=== PATIENT | female | born 1970 | race Hispanic/Latino ===

== ENCOUNTER 2020-03-23 16:08 | Inpatient (IN) | payer SELFPAY ==
[~2020-03-23 16:08] MED LIST: Iopamidol-370 76% 500 ML 1 ML ONE
[2020-03-23 17:23] LABS: Hemoglobin 12.7 g/dL (12.0-16.0); Mean Corpuscular HGB CONC 34.3 g/dL (32.0-36.0); Mean Corpuscular Hemoglobin 30.5 pg (27.0-31.0); Mean Corpuscular Volume 88.9 fL (78.0-98.0); Mean Platelet Volume 6.6 fL (7.4-10.4); Platelet Count 403 thou/uL (130-400); RBC Distribution Width 12.7 % (11.5-14.5); Red Blood Cell (RBC) Count 4.16 mill/uL (4.20-5.40); White Blood Cell (WBC) Count 8.3 thou/uL (4.8-10.8)
[2020-03-23] MEDS ORDERED: Morphine 4 MG/ML VIAL ONE (17:44)
[2020-03-23] MEDS ORDERED: Ondansetron PF 4 MG/2 ML Vial ONE (17:44)
[2020-03-23 17:45] LABS: ALT (SGPT) 13 U/L (8-55); AST (SGOT) 14 U/L (5-34); Albumin 3.5 g/dL (3.5-5.0); Alkaline Phosphatase 139 U/L (40-110); Anion Gap 13 mmol/L (10-20); BUN (Urea Nitrogen) 8 mg/dL (7.0-18.7); Band 4 % (5-11); Bilirubin, Total 0.4 mg/dL (0.2-1.2); Calc. Creatinine Clearance 0 mL/min (70-130); Calcium 8.8 mg/dL (7.8-10.44); Carbon Dioxide 24 mmol/L (22-29); Chloride 101 mmol/L (98-107); Estimated GFR-MDRD Greater than 90; Glucose 110 mg/dL (70-105); Lipase 14 U/L (8-78); Lymphocytes 30 % (21-51); MDiff Complete? YES; Monocytes 6 % (0-10); Neutrophil 60 % (42-75); Platelet Morphology Comment Appears Increased; Potassium 3.5 mmol/L (3.5-5.1); Protein, Total 7.5 g/dL (6.0-8.3); RBC Morphology Normal; Sodium 134 mmol/L (136-145)
--- NOTE | 2020-03-23 18:53 | CT ---
CT Abdomen Pelvis W Con History: Diffuse abdominal pain Comparison: None. Findings: Large left and moderate right layering pleural effusion incompletely evaluated. Consolidati ve appearance left lung base. No significant pericardial fluid. Abnormal peritoneal nodules in the right subhepatic space as well as right paracolic gutter. Abnormal nodularity left paracolic gutter as well as nodules along the sigmoid colon and descending colon. There are dilated loops of jejunum measuring up to 5 cm in size with partial obstruction likely seque lae of adhesions. Given lack of comparison exams, a contained perforation cannot be totally excluded although there is no gas within any of these collections. Loculated intraperitoneal fluid with thick wall loops of small bowel. Abnormal thickening of the omen simin. Liver and spleen are unremarkable. No hydronephrosis. Adrenal glands are grossly unremarkable. Celiac trunk and superior mesenteric arteries are patent. Metastatic proximal small bowel lymph nodes as well as retroperitoneal periaortic adenopathy. There is mass effect upon the loop of small bowel ante rior to a loculated anterior peritoneal space fluid collection with irregular to the serosa likely metastatic implants. No acute osseous abnormality. Impression: 1. Loculated collections of the peritoneal space with tethering of large and small bowel as well as p eritoneal carcinomatosis. There are dilated loops of jejunum in the mid abdomen measuring up to 5 cm in size which appear to be obstructed from loculated collections as well as scarring and adhesions with transition point in the lower mid abdomen. Surgical consultation is advised. Patient may also benefit from a right lower quadrant directed paracentesis to alleviate some of the mass effect upon t he large and small bowel. 2. Retroperitoneal periaortic, common iliac, and proximal small bowel mesenteric adenopathy. 3. Cholelithiasis. 4. Abnormal soft tissue nodule along the gallbladder fundus towards nonemergent follow-up ultrasound recommended. 5. Large left and moderate right pleural effusion as well as consolidative changes in the lung bases may reflect round atelectasis versus less likely pneumonia or metastatic disease.
[2020-03-23] MEDS ORDERED: Midazolam HCl 2 mg/2 ml Vial ONE (20:06)
--- NOTE | 2020-03-23 21:03 | RAD ---
XR Abdomen 1 View/KUB History: NG tube placement Comparison: None. Findings: Enteric tube is in place with tip in gastric antrum. There is contrast within the renal col lecting systems in the urinary bladder. Impression: Satisfactory location of the enteric tube.
[2020-03-23] MEDS ORDERED: Ondansetron ODT 4 MG TAB PO PRN (21:19)
[2020-03-23] MEDS ORDERED: Ondansetron PF 4 MG/2 ML Vial IVP PRN (21:19)
[2020-03-23] MEDS ORDERED: Morphine 2 MG/ML SYRINGE SLOW IVP PRN (21:21)
--- NOTE | 2020-03-23 21:29 | PDOC.HHP ---
Hospitalist HPI - History of Present Illness abdominal pain History of Present Illness: history is limited, patient is a poor historian and has a NGT and refers pain when talking. Case of an 49y/o female with pmhx of ovarion cancer s/p ovariectomy who comes to hospital due to abdominal pain. patient refers that after her procedure in due to covid she has had poor f/u with her oncologist, states that about a month ago her belly started swelling, they did a paracenthesis and she had cancer cells in the parecenthesis fluid. she states that she is not currently in any treatment and came to hospital in recommendation from her doctor and increased swelling and pain on her abdomen. At the ED patient was dx with SOB and hospitalist was consulted for further evaluation and management. patient states he last bowel movement was 1 day ago. Hospitalist ROS - Review of Systems All other systems reviewed; all pertinent +/- noted in HPI/Subj Hospitalist History - Past Medical History Source: patient Heme/Onc: reports: Cancer - Past Surgical History Past Surgical History: reports: Other Surgical History: ovarectomy - Family History Family History: reports: no pertinent history - Social History Smoking Status: Never smoker Alcohol: reports: None Drugs: reports: none Activity level: independent ambulation - Exam Eye: PERRL, anicteric sclera ENT: normocephalic atraumatic, no oropharyngeal lesions Neck: supple, symmetric, no JVD Heart: RRR, no murmur, no gallops Respiratory: CTAB, no wheezes, no rales Gastrointestinal: tender to palpation, distended, diminished bowl sounds Extremities: no cyanosis, no clubbing, no edema Skin: normal turgor, no lesions Neurological: cranial nerve grossly intact, normal sensation to touch Musculoskeletal: normal tone, normal strength Psychiatric: normal affect, normal behavior, A&O x 3 Hospitalist Results - Labs Result Diagrams: 03/23/20 17:11 03/23/20 17:11 Lab results: WBC 8.3 thou/uL (4.8-10.8) 03/23/20 17:11 Hgb 12.7 g/dL (12.0-16.0) 03/23/20 17:11 Hct 37.0 % (36.0-47.0) 03/23/20 17:11 MCV 88.9 fL (78.0-98.0) 03/23/20 17:11 Plt Count 403 thou/uL (130-400) H 03/23/20 17:11 Band Neuts % (Manual) 4 % (5-11) L 03/23/20 17:11 Sodium 134 mmol/L (136-145) L 03/23/20 17:11 Potassium 3.5 mmol/L (3.5-5.1) 03/23/20 17:11 Chloride 101 mmol/L (98-107) 03/23/20 17:11 Carbon Dioxide 24 mmol/L (22-29) 03/23/20 17:11 BUN 8 mg/dL (7.0-18.7) 03/23/20 17:11 Creatinine 0.69 mg/dL (0.6-1.1) 03/23/20 17:11 Glucose 110 mg/dL (70-105) H 03/23/20 17:11 Calcium 8.8 mg/dL (7.8-10.44) 03/23/20 17:11 Total Bilirubin 0.4 mg/dL (0.2-1.2) 03/23/20 17:11 AST 14 U/L (5-34) 03/23/20 17:11 ALT 13 U/L (8-55) 03/23/20 17:11 Alkaline Phosphatase 139 U/L (40-110) H 03/23/20 17:11 Serum Total Protein 7.5 g/dL (6.0-8.3) 03/23/20 17:11 Albumin 3.5 g/dL (3.5-5.0) 03/23/20 17:11 Lipase 14 U/L (8-78) 03/23/20 17:11 - Radiology Interpretation CT scan - abdomen Additional Comment: ascites, SBO Hospitalist H&P A/P - Problem (1) Small bowel obstruction Code(s): K56.609 - UNSP INTESTNL OBST, UNSP TO PARTIAL VERSUS COMPLETE OBST Status: Acute (2) Ovarian cancer Status: Acute (3) Metastasis Code(s): C79.9 - SECONDARY MALIGNANT NEOPLASM OF UNSPECIFIED SITE Status: Acute (4) Ascites, malignant Code(s): R18.0 - MALIGNANT ASCITES Status: Acute - Plan Plan: 49 y/o fem with metastatic ovarian cancer presenet with bowel obstruction and ascites - npo - iv hydration - symptomatic tx for nause - ngt on intermittent suction - pain management - dvt prophylaxis - gen surgeon consulted - oncologist consulted - depeding on surgeon evaluation consider paracenthesis by IR
[2020-03-23] MEDS: Sodium Chloride 0.9% 1,000 ML IV SCH (23:24)
[2020-03-24 00:29] VITALS: BMI 25.4
[2020-03-24] MEDS: Morphine 4 MG/ML VIAL SLOW IVP PRN (03:55)
--- NOTE | 2020-03-24 09:11 | PDOC.GSPN ---
Surgery Progress Note: Subj - Subjective Patient reports: still having pain (49 yo female with a PMHx of ovarian cancer and secondary ascites. She speaks kuwaiti so very little history was able to be obtained.) Surgery Progress Note: Obj - Vital signs Vital signs: Vital Signs - Most Recent Temp Pulse Resp BP Pulse Ox 98.7 F 95 16 125/74 97 03/24/20 07:10 03/24/20 07:10 03/24/20 07:10 03/24/20 07:10 03/24/20 07:10 - Physical Exam General: moderate distress, moderate pain Abdomen: decreased bowel sounds, distended, other (Patients abdomen is dull to persussion. NG tube has produced 125 mL of bilious fluid.) Surgery Progress Note: Results - Labs Result Diagrams: 03/23/20 17:11 03/23/20 17:11 - Radiology Interpretation CT scan - abdomen Status: report reviewed by me (Report shows abnormal nodularity in the subhepatic space, left and right paracolic gutters, and along the sigmoid colon. Omentum appears thickened. Dilated loops of jejunum likely secondary to adhesions.) Surgery Progress Note: A/P - Problem (1) Ascites, malignant Current Visit: Yes Code(s): R18.0 - MALIGNANT ASCITES Status: Acute (2) Metastasis Current Visit: Yes Code(s): C79.9 - SECONDARY MALIGNANT NEOPLASM OF UNSPECIFIED SITE Status: Acute (3) Ovarian cancer Current Visit: Yes Status: Acute - Plan Plan: Continue to monitor patient for small bowel obstruction. Addendum - Physician - Physician Attestation Date/Time: 03/24/20 8650 I personally performed or re-performed the physical examination and medical decision making. I have verified all student documentation or findings, including history, physical exam and/or medical decision making. Ovarian malignancy with carcinomatosis and malignant ascites. 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 She does not have an acute abdomen. I suspect this is a chronic obstruction secondary to the cancer.
[2020-03-24] MEDS: Enoxaparin Sodium 40 MG/0.4 ML SYRINGE SC SCH (09:18)
[2020-03-24] MEDS: Sodium Chloride 0.9% 1,000 ML IV SCH (14:07)
[2020-03-24] MEDS: Morphine ER 15 MG TAB PO SCH (20:09)
--- NOTE | 2020-03-24 21:38 | CON ---
DATE OF CONSULTATION: REASON FOR CONSULTATION: Serous carcinoma of the ovary. HISTORY OF PRESENT ILLNESS: Ms. Thakur is a pleasant 49-year-old, Northern Irish-speaking only female, who presented in June 2019 with distended abdomen, weight loss, and ascites. 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 She underwent chemotherapy with carboplatin and Taxol. She underwent exploratory lap and a MARÍA-BSO with tumor debulking by Dr. Duran in October. In January, she was seen in our office and denied any fever, nausea, vomiting, diarrhea, abdominal pain, or blood in stool. She was having some gas pains and occasional bloating. Her CA-125 was elevated at 566. She underwent a routine scanning and unfortunately was noted to have peritoneal carcinomatosis, massive ascites. Her CA-125 increased to 3900 in one month. She underwent a paracentesis on March 16, which was positive for malignant cells. Plan was to start IV chemotherapy with Doxil. Unfortunately, she is uninsured and financial approval process is currently pending. Over the last several days, she has had worsening abdominal discomfort. She presented to the ER and was admitted for possible small bowel obstruction. She underwent a CT of the abdomen and pelvis. There was large left and moderate right pleural effusion. Once again, the peritoneal carcinomatosis was seen. There were dilated loops of jejunum measuring up to 5 cm with partial obstruction, likely due to cancer. She had loculated intraperitoneal fluid with thick walled loops of small bowel. She had thickening of the omentum. She had an NG tube placed, which has putout 125 mL of bilious fluid. History was obtained from the patient using the [employer] field contractor. The patient states that she has been able to eat a little bit over the last week or so. She says she had a small bowel movement yesterday. She has been taking no narcotic pain medication at home. 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 PAST SURGICAL HISTORY: Exploratory lap with MARÍA-BSO and tumor debulking in October 2019. ALLERGIES: NO KNOWN DRUG ALLERGIES. HOME MEDICATIONS: 1. Gabapentin. 2. Hydroxyzine. 3. Zofran. FAMILY HISTORY: She has a BRCA1 mutation. SOCIAL HISTORY: No alcohol, tobacco, or illicit drug use. REVIEW OF SYSTEMS: A 12-point review of systems is negative except for noted in HPI. PHYSICAL EXAMINATION: VITAL SIGNS: Temperature 98.7, pulse is 102, respiratory rate 18, BP is 129/70. She is 95% on room air. GENERAL: This is a well-developed, well-nourished female, in mild abdominal distress. HEENT: Normocephalic and atraumatic. Pupils are equal and reactive to light. NECK: Supple. CV: Regular rate and rhythm. LUNGS: Clear. ABDOMEN: Distended and tender with hypoactive bowel sounds. She has an NG tube in place. EXTREMITIES: No clubbing or cyanosis. SKIN: No rash. HEMATOLOGIC: No petechiae or purpura. NEUROLOGIC: Nonfocal. PERTINENT LABORATORY DATA AND X-RAYS: Current WBCs are 8.3, hemoglobin 12.7, hematocrit 37.0, platelet count is 403,000. She has 60% neutrophils, 4% bands, and 30% lymphocytes. Sodium 134, potassium 3.5, chloride 101, CO2 is 24, BUN is 8, creatinine 0.69, calcium 8.8, bilirubin is 0.4, AST is 14, ALT 13, alkaline phosphatase is 139. Serum total protein 7.5, albumin 3.5, globulin 4, lipase 14. Radiology, per HPI. ASSESSMENT: 1. Recurrent ovarian cancer with malignant ascites. 2. Partial bowel obstruction secondary to #1. DISCUSSION: The patient's NG tube is in place with minimal output. She states she is passing gas. Discussed with general surgeon. There is no surgical intervention planned at this time. The patient was to receive chemotherapy over the next week. We will check with the hospital to see if that is available now and can treat her first cycle as an inpatient. I would recommend long-acting morphine once she is able to take p.o. She understands that if she continues to struggle with bowel movements and eating, that we would recommend comfort care, spending time with family. If she is able to go home and her pain is managed, she can get chemotherapy. Hopefully, this will improve and we can continue forward with treatment. Thank you for the consult. Job ID: [id number]
--- NOTE | 2020-03-24 23:01 | PDOC.HOSPP ---
- Subjective Encounter Date: 03/24/20 Subjective: Feeling ok. No pain. - Objective Vital Signs & Weight: Vital Signs (12 hours) Temp Pulse Resp BP BP Pulse Ox 03/24/20 20:00 99.4 F 100 18 122/72 95 03/24/20 16:00 99.1 F 110 H 16 121/70 97 03/24/20 11:00 98.7 F 102 H 18 129/70 95 Weight Admit Weight 144 lb Weight 144 lb I&O: 03/23/20 03/24/20 03/25/20 06:59 06:59 06:59 Intake Total 971 Output Total 350 Balance 621 Result Diagrams: 03/23/20 17:11 03/23/20 17:11 Hospitalist ROS - Medication Medications: Active Medications Generic Name Dose Route Start Last Admin Trade Name Freq PRN Reason Stop Dose Admin Enoxaparin Sodium 40 mg 03/24/20 09:00 03/24/20 09:18 Lovenox SC 40 mg 0900 UBALDO Administration Sodium Chloride 1,000 mls @ 75 mls/hr 03/23/20 21:30 03/24/20 14:07 Normal Saline 0.9% IV 1,000 mls .[id number] UBALDO Administration Morphine Sulfate 2 mg 03/24/20 03:51 03/24/20 03:55 Morphine SLOW IVP 2 mg Q4H PRN Administration Pain Morphine Sulfate 15 mg 03/24/20 21:00 03/24/20 20:09 Ms Contin PO Not Given Q12HR UBALDO - Exam General Appearance: NAD, awake alert Heart: RRR, no murmur, no gallops, no rubs, normal peripheral pulses Respiratory: CTAB, no wheezes, no rales, no ronchi, normal chest expansion, no tachypnea, normal percussion Gastrointestinal: soft, distended Extremities: no cyanosis, no clubbing, no edema Skin: normal turgor Neurological: no focal deficits Musculoskeletal: normal tone Psychiatric: normal affect, normal behavior, A&O x 3 Hosp A/P (1) Ascites, malignant Code(s): R18.0 - MALIGNANT ASCITES Status: Acute (2) Ovarian cancer Status: Acute (3) Small bowel obstruction Code(s): K56.609 - UNSP INTESTNL OBST, UNSP TO PARTIAL VERSUS COMPLETE OBST Status: Acute (4) Peritoneal carcinomatosis Code(s): C78.6 - SECONDARY MALIGNANT NEOPLASM OF RETROPERITON AND PERITONEUM; C80.1 - MALIGNANT (PRIMARY) NEOPLASM, UNSPECIFIED Status: Suspected - Plan Discussed with Surg and Onc. Bhumi chronic issues. Will attempt to remove the NGT and try po's. If she can tolerate po's, then give long-acting pain meds. If chemo can be obtained immediately, try to initiate here. If not, DC for OP treatment next week. If she cannot tolerate po's or if she fully obstructs, consider hospice.
[2020-03-25] MEDS: Morphine 4 MG/ML VIAL SLOW IVP PRN (02:23)
[2020-03-25] MEDS: Sodium Chloride 0.9% 1,000 ML IV SCH ×2 (02:25→15:12)
[2020-03-25] MEDS: Morphine ER 15 MG TAB PO SCH ×2 (09:20→21:07)
[2020-03-25] MEDS: Enoxaparin Sodium 40 MG/0.4 ML SYRINGE SC SCH (09:20)
--- NOTE | 2020-03-25 10:13 | PDOC.MOPN ---
Interval History: sitting on side of bed, denies pain. NGT clamped at this time. No nausea. - Vital Signs Vital Signs: Vital Signs (12 hours) Temp Pulse Resp BP Pulse Ox 03/25/20 08:30 98.3 F 95 18 128/74 95 03/25/20 04:00 98.5 F 97 16 133/76 97 03/24/20 23:56 98.9 F 97 18 118/70 95 Weight Admit Weight 144 lb Weight 144 lb - Physical Exam General: Alert, Oriented x3, No acute distress HEENT: Atraumatic, PERRLA, EOMI, Mucous membr. moist/pink Lungs: Clear to auscultation, Normal air movement Cardiovascular: Regular rate, Normal S1, Normal S2, No murmurs, Gallops, Rubs Abdomen: Other (distended) Neurological: Normal speech - Labs Result Diagrams: 03/23/20 17:11 03/23/20 17:11 Status: lab reviewed by me A/P - Problem (1) Ascites, malignant Current Visit: Yes Code(s): R18.0 - MALIGNANT ASCITES Status: Acute (2) Metastasis Current Visit: Yes Code(s): C79.9 - SECONDARY MALIGNANT NEOPLASM OF UNSPECIFIED SITE Status: Acute (3) Ovarian cancer Current Visit: Yes Status: Acute (4) Peritoneal carcinomatosis Current Visit: No Code(s): C78.6 - SECONDARY MALIGNANT NEOPLASM OF RETROPERITON AND PERITONEUM; C80.1 - MALIGNANT (PRIMARY) NEOPLASM, UNSPECIFIED Status: Suspected - Plan Plan: 1. labs today 2. NGT out per [facility] TO 3. chemo today 4. discussed with Dr. Benítez who agrees with plan. 5. Continue MS Contin
[2020-03-25] MEDS ORDERED: Palonosetron HCl 0.25 MG in Sodium Chloride 0.9% 50 ML IVPB SCH (10:30)
[2020-03-25] MEDS ORDERED: DEXTROSE 5% IVPB SCH ×2 (10:30→11:30)
[2020-03-25] MEDS ORDERED: DOXORUBICIN IVPB SCH (10:30)
[2020-03-25] MEDS ORDERED: WATER IVPB SCH ×2 (10:30→11:30)
[2020-03-25] MEDS ORDERED: Dexamethasone 10 MG in Sodium Chloride 0.9% 50 ML IVPB SCH (10:30)
[2020-03-25] MEDS ORDERED: DOXORUBICIN PEG LIPOSOMAL IVPB SCH (11:30)
[2020-03-25 12:08] LABS: ALT (SGPT) 10 U/L (8-55); AST (SGOT) 12 U/L (5-34); Albumin 3.2 g/dL (3.5-5.0); Alkaline Phosphatase 112 U/L (40-110); Anion Gap 15 mmol/L (10-20); BUN (Urea Nitrogen) 11 mg/dL (7.0-18.7); Bilirubin, Total 0.5 mg/dL (0.2-1.2); Calc. Creatinine Clearance 126 mL/min (70-130); Calcium 8.6 mg/dL (7.8-10.44); Carbon Dioxide 21 mmol/L (22-29); Chloride 106 mmol/L (98-107); Estimated GFR-MDRD Greater than 90; Globulin 3.8 g/dL (2.4-3.5); Glucose 72 mg/dL (70-105); Potassium 4.1 mmol/L (3.5-5.1); Sodium 138 mmol/L (136-145)
[2020-03-25 12:18] LABS: Band 10 % (5-11); Eosinophils 1 % (0-10); Hemoglobin 11.8 g/dL (12.0-16.0); Lymphocytes 12 % (21-51); MDiff Complete? YES; Mean Corpuscular HGB CONC 32.8 g/dL (32.0-36.0); Mean Corpuscular Hemoglobin 29.7 pg (27.0-31.0); Mean Corpuscular Volume 90.7 fL (78.0-98.0); Mean Platelet Volume 6.8 fL (7.4-10.4); Monocytes 8 % (0-10); Neutrophil 68 % (42-75); Platelet Count 401 thou/uL (130-400); Polychromasia SLIGHT = 2-3 cells (100X) (0-2/hpf); RBC Distribution Width 12.8 % (11.5-14.5); Red Blood Cell (RBC) Count 3.98 mill/uL (4.20-5.40); White Blood Cell (WBC) Count 8.1 thou/uL (4.8-10.8)
--- NOTE | 2020-03-25 18:35 | PDOC.HOSPP ---
- Subjective Encounter Date: 03/25/20 Subjective: Feels well. Doing well without the NG tube so far. Eager to be able to advance her diet as soon as she can. - Objective Vital Signs & Weight: Vital Signs (12 hours) Temp Pulse Resp BP Pulse Ox 03/25/20 08:30 98.3 F 95 18 128/74 95 Weight Admit Weight 144 lb Weight 138 lb I&O: 03/24/20 03/25/20 03/26/20 06:59 06:59 06:59 Intake Total 971 Output Total 150 500 Balance -150 471 Result Diagrams: 03/25/20 11:25 03/25/20 11:25 Hospitalist ROS - Medication Medications: Active Medications Generic Name Dose Route Start Last Admin Trade Name Deanna PRN Reason Stop Dose Admin Enoxaparin Sodium 40 mg 03/24/20 09:00 03/25/20 09:20 Lovenox SC 40 mg 0900 UBALDO Administration Sodium Chloride 1,000 mls @ 75 mls/hr 03/23/20 21:30 03/25/20 15:12 Normal Saline 0.9% IV 1,000 mls .[id number] UBALDO Administration Palonosetron 0.25 mg/ Sodium 55 mls @ 165 mls/hr 03/25/20 10:30 03/25/20 16: 01 Chloride IVPB 03/25/20 23:00 55 mls WILLCALL UBALDO Administration Dexamethasone Sodium Phosphate 51 mls @ 153 mls/hr 03/25/20 11:15 03/25/20 15 :11 10 mg/ Sodium Chloride IVPB 51 mls WILLCALL UBALDO Administration Doxorubicin HCl Liposome 75 mg 287.5 mls @ 191.667 mls/hr 03/25/20 11:30 10/14 16:38 / Dextrose/Water IVPB 287.5 mls WILLCALL UBALDO Administration Morphine Sulfate 15 mg 03/24/20 21:00 03/25/20 09:20 Ms Contin PO Not Given Q12HR UBALDO - Exam General Appearance: NAD, awake alert Heart: RRR, no murmur, no gallops, no rubs, normal peripheral pulses Respiratory: CTAB, no wheezes, no rales, no ronchi, normal chest expansion, no tachypnea, normal percussion Gastrointestinal: soft, non-tender, normal bowel sounds, no palpable masses, no hepatomegaly, no splenomegaly, no bruit, distended Extremities: no cyanosis, no clubbing, no edema Skin: normal turgor Musculoskeletal: normal tone Psychiatric: normal affect, normal behavior, A&O x 3 Hosp A/P (1) Ascites, malignant Code(s): R18.0 - MALIGNANT ASCITES Status: Acute (2) Ovarian cancer Status: Acute (3) Small bowel obstruction Code(s): K56.609 - UNSP INTESTNL OBST, UNSP TO PARTIAL VERSUS COMPLETE OBST Status: Acute (4) Peritoneal carcinomatosis Code(s): C78.6 - SECONDARY MALIGNANT NEOPLASM OF RETROPERITON AND PERITONEUM; C80.1 - MALIGNANT (PRIMARY) NEOPLASM, UNSPECIFIED Status: Suspected - Plan Discussed with Surg and Onc. Bhumi chronic issues. Remove the NG tube today. We will give her clear liquids and advance if she tolerates those. Will initiate chemotherapy while she is here. The hope is that we will be able to reduce the size of some of these tumors and improve the throughput from her gut. Continue with MS Webb for pain.
[2020-03-26 08:21] VITALS: BP 114/70; TEMP 98.5
--- NOTE | 2020-03-26 08:38 | PDOC.MOPN ---
Interval History: Pt is s/p Doxil yesterday. She tolerated it well w/o AEs. Today, denies N/V/D. She has mild abdominal pain. NGT removed and she has been able to take PO ok. - Vital Signs Vital Signs: Vital Signs (12 hours) Temp Pulse Resp BP BP Pulse Ox 03/26/20 07:15 98.5 F 87 18 114/70 95 03/26/20 04:01 98.2 F 73 16 129/78 96 03/25/20 23:33 98.6 F 79 16 133/74 96 Weight Admit Weight 144 lb Weight 138 lb - Physical Exam General: Alert, Oriented x3, Cooperative HEENT: EOMI Lungs: Clear to auscultation Cardiovascular: Regular rate, No murmurs Abdomen: Soft, Other (mild tenderness) Neurological: Cranial nerves 3-12 NL - Labs Result Diagrams: 03/25/20 11:25 03/25/20 11:25 Lab results: Laboratory Results - last 24 hr 03/25/20 11:25: WBC 8.1, RBC 3.98 L, Hgb 11.8 L, Hct 36.1, MCV 90.7, MCH 29.7, MCHC 32.8, RDW 12.8, Plt Count 401 H, MPV 6.8 L, Neutrophils % (Manual) 68, Band Neuts % (Manual) 10, Lymphocytes % (Manual) 12 L, Monocytes % (Manual) 8, Eosinophils % (Manual) 1, Basophils % (Manual) 1, Polychromasia SLIGHT = 2-3 cells 03/25/20 11:25: CA 125 (ALAYNA) 5600.3 H 03/25/20 11:25: Sodium 138, Potassium 4.1, Chloride 106, Carbon Dioxide 21 L, Anion Gap 15, BUN 11, Creatinine 0.57 L, Estimated GFR (MDRD) Greater than 90, Glucose 72, Calcium 8.6, Total Bilirubin 0.5, AST 12, ALT 10, Alkaline Phosphatase 112 H, Serum Total Protein 7.0, Albumin 3.2 L, Globulin 3.8 H, Albumin/Globulin Ratio 0.8 L A/P - Problem (1) Ascites, malignant Current Visit: Yes Code(s): R18.0 - MALIGNANT ASCITES Status: Acute (2) Ovarian cancer Current Visit: Yes Status: Acute (3) Small bowel obstruction Current Visit: Yes Code(s): K56.609 - UNSP INTESTNL OBST, UNSP TO PARTIAL VERSUS COMPLETE OBST Status: Acute - Plan Plan: s/p C1 of Doxil yesterday, tolerated well cont pain meds advance diet as tolerated
[2020-03-26] MEDS: Morphine ER 15 MG TAB PO SCH (08:59)
[2020-03-26] MEDS: Enoxaparin Sodium 40 MG/0.4 ML SYRINGE SC SCH (09:02)
[2020-03-26] MEDS: Sodium Chloride 0.9% 1,000 ML IV SCH (09:02)
--- NOTE | 2020-03-26 20:45 | DIS ---
DATE OF ADMISSION: 03/23/2020 DATE OF DISCHARGE: 03/26/2020 DISCHARGE DIAGNOSES: 1. Metastatic ovarian cancer. 2. Carcinomatosis peritonei. 3. Malignant ascites. 4. Partial small-bowel obstruction. HISTORY OF PRESENT ILLNESS: The patient is a 49-year-old female, who had a debulking procedure for metastatic ovarian cancer. She subsequently was to be initiated on chemotherapy. However, she had substantial recurrence with ascites and some partial obstruction. She presented to the hospital with abdominal pain and vomiting. HOSPITAL COURSE: The patient was admitted to the hospital, had an NG tube placed. She was seen by Surgery and felt like there was really no opportunity for surgical intervention at that point. She was seen by Oncology and patient appeared to be doing well with some decompression of her abdomen, to try to remove the NG tube and see if she could take some amount of p.o. If she could do that, the plan would be to try to go ahead and start her on some Doxil while she was here. If not, then consider more palliative approach. The NG tube was removed. She was able to take clears, advance to regular diet and actually looked really quite good with that. She was then treated with the first course of Doxil, which she seemed to tolerate and was felt to be stable for discharge home. PHYSICAL EXAMINATION: VITAL SIGNS: On the day of discharge, temperature is 98.5, pulse 87, respirations 18, O2 saturation 95% on room air, BP 114/70. GENERAL APPEARANCE: Age-appropriate. HEART: Regular. LUNGS: Clear. ABDOMEN: Mildly distended, but not significantly tender. EXTREMITIES: No edema. DISPOSITION: The patient is discharged to home in stable condition. DIET: She is to have regular diet. ACTIVITY: As tolerated. MEDICATIONS: Include: 1. Zofran 8 mg q.4 p.r.n. 2. Bentyl 10 mg t.i.d. p.r.n. FOLLOWUP: She is to follow up with the Oncology Clinic and they will provide prescription for MS Webb to take orally for pain control. She can return to the hospital at anytime should she have the need to do so. TIME SPENT: Time spent in discharge activities was less than 30 minutes. Job ID: [id number]
== END 2020-03-26 13:50 | disposition home or self-care (01) | DRG 755 ==
LOC: ERS 16:08 → ONC 20:46
PROVIDERS: ADMIT Internal Medicine; ATTEND Internal Medicine
DX: C56.9 Malignant neoplasm of unspecified ovary (principal); C78.6 Secondary malignant neoplasm of retroperitoneum and peritoneum; R18.0 Malignant ascites; Z90.722 Acquired absence of ovaries, bilateral; Z79.899 Other long term (current) drug therapy
CPT/HCPCS: 36415; 74018; 74177; 80053; 83690; 85025; 86304; 93005; 96361; 96374; 96375; J1100; J1650; J2250; J2270; J2405; J2469; J7070; J9000; Q9967

== ENCOUNTER 2020-04-04 19:27 | Observation (INO) | payer OTHER, SELFPAY ==
[~2020-04-04 19:27] MED LIST changes: +Iopamidol 370 76% 100 ML VIAL ONE; -Iopamidol-370 76% 500 ML 1 ML ONE
[2020-04-04 22:25] LABS: Hemoglobin 11.3 g/dL (12.0-16.0); Mean Corpuscular HGB CONC 32.2 g/dL (32.0-36.0); Mean Corpuscular Hemoglobin 28.5 pg (27.0-31.0); Mean Corpuscular Volume 88.7 fL (78.0-98.0); Mean Platelet Volume 7.4 fL (7.4-10.4); Platelet Count 404 thou/uL (130-400); RBC Distribution Width 13.4 % (11.5-14.5); Red Blood Cell (RBC) Count 3.95 mill/uL (4.20-5.40); White Blood Cell (WBC) Count 5.6 thou/uL (4.8-10.8)
[2020-04-04 22:27] LABS: Bilirubin Negative (Negative); Blood, Urine Negative (Negative); Clarity Turbid (Clear); Glucose, Urine (Dipstick) Normal (Negative); Ketone, Urine 20 mg/dL (Negative); Leukocyte 25 Leu/uL (Negative); Mucous/LPF 3+ LPF (<2+); Nitrite Negative (Negative); Protein, Urine (Dipstick) 30 mg/dL (Neg-Trace); RBC/HPF 0-3 HPF (0-3); Specific Gravity, Urine 1.023 (1.002-1.036); Squamous Epithelial Greater than 50 HPF (0-3); Urobilinogen 6 mg/dL (Less than 2)
[2020-04-04 22:32] LABS: Bacteria/HPF 2+ HPF (None Seen); Calcium Oxalate Crystals 1+ HPF (None Seen)
[2020-04-04 22:42] LABS: ALT (SGPT) 8 U/L (8-55); AST (SGOT) 11 U/L (5-34); Albumin 3.1 g/dL (3.5-5.0); Alkaline Phosphatase 152 U/L (40-110); Anion Gap 14 mmol/L (10-20); BUN (Urea Nitrogen) 5 mg/dL (7.0-18.7); Bilirubin, Total 0.5 mg/dL (0.2-1.2); Calc. Creatinine Clearance 0 mL/min (70-130); Calcium 8.6 mg/dL (7.8-10.44); Carbon Dioxide 23 mmol/L (22-29); Chloride 96 mmol/L (98-107); Estimated GFR-MDRD Greater than 90; Globulin 3.8 g/dL (2.4-3.5); Glucose 106 mg/dL (70-105); Lipase Less than 4 U/L (8-78); Potassium 3.7 mmol/L (3.5-5.1); Protein, Total 6.9 g/dL (6.0-8.3); Sodium 129 mmol/L (136-145)
[2020-04-04 22:50] LABS: Band 18 % (5-11); Hypochromia SLIGHT = 6-15 cells (100X) (0-5/hpf); Lymphocytes 11 % (21-51); MDiff Complete? YES; Monocytes 2 % (0-10); Neutrophil 69 % (42-75); Platelet Morphology Comment Appears Adequate
--- NOTE | 2020-04-05 00:22 | CT ---
CT OF ABDOMEN AND PELVIS: Date: 04/04/2020 COMPARISON: 03/23/2020. HISTORY: Pain and distention. TECHNIQUE: Axial CT imaging at 5 mm intervals from the lung bases through the pubic symphysis with intravenous c ontrast. Coronal and sagittal reformatted imaging obtained. FINDINGS: Small bilateral pleural effusions are noted, right greater than left. There is a suggestion of pleura l enhancement and thickening, left greater than right, suspicious for possible parapneumonic effusion s or developing empyemas vs malignant effusions. Adjacent partial opacification of bilateral lower lo bes noted. No focal liver lesion is seen. The gallbladder is grossly unremarkable. There is a large fluid collection inferior to the right lobe of the liver measuring 21 cm in AP dimen albino and 24 cm in craniocaudal dimension, similar when compared to the prior exam. The spleen, pancre as, adrenal glands, and kidneys demonstrate no acute findings. The urinary bladder is decompressed and demonstrates wall thickening and wall irregularity, which may signify inflammatory change, stable. Stable3 nonspecific small volume fluid in the presacral space. There are numerous fluid collections associated with multiple abnormal appearing thick-walled loops o f bowel throughout the abdomen/pelvis centrally, primarily associated with markedly abnormal loops of small bowel as before. This suggests extensive small bowel inflammatory change with numerous associa thang abscesses or cystic metastatic deposits, similar when compared to prior imaging. Fluid collection s are noted within the pelvis measuring up to 12 cm in transverse dimension (image 59). There are als o upper abdominal fluid collections within the left upper quadrant measuring up to 15 mL. The loculat ed fluid collections within the left upper quadrant suggesting multifocal abscess formation have wors ened since the prior exam. The lack of oral contrast media limits detailed assessment of the bowel. There are nonspecific enlarged retroperitoneal lymph nodes noted in the aortocaval region, the left p araaortic region, and adjacent to the common iliac vasculature bilaterally. This retroperitoneal lymp hadenopathy is stable when compared to the prior exam. Review of the osseous structures demonstrates no worrisome lytic or blastic bone lesion. IMPRESSION: There are numerous loculated fluid collections throughout the abdomen/pelvis, some of which have enla rged when compared to the prior study in the mid left abdomen/left upper quadrant. These are associat ed with numerous irregular small bowel loops, some of which are thick-walled and some of which demons trate dilation and internal stool. There are also bilateral pleural effusions with pleural thickening . Elizabeth Ventura was made aware of these findings at the time of interpretation. She relates that the patient has a history of metastatic ovarian cancer and thus the fluid collections are likely on the basis of extensive peritoneal carcinomatosis with loculated areas of malignant ascites. Pleural fluid bilaterally may be malignant in nature as well. The lymphadenopathy within the abdomen/pelvis is thony s likely reactive in nature. Areas of small bowel obstruction are suspected given the scattered dilat ed stool-containing small bowel loops. POS: [facility]
[2020-04-05] MEDS ORDERED: Sodium Chloride 0.9% 1,000 ML IV SCH ×2 (02:05→02:29)
[2020-04-05] MEDS ORDERED: Ondansetron ODT 4 MG TAB SL PRN (02:05)
[2020-04-05] MEDS ORDERED: Ondansetron PF 4 MG/2 ML Vial IVP PRN (02:05)
[2020-04-05] MEDS ORDERED: Enoxaparin Sodium 40 MG/0.4 ML SYRINGE SC SCH (03:15)
[2020-04-05 03:51] VITALS: BMI 33.4
[2020-04-05] MEDS ORDERED: Acetaminophen 325 MG TAB PO PRN (04:04)
[2020-04-05] MEDS ORDERED: Morphine 2 MG/ML VIAL SLOW IVP PRN (05:33)
[2020-04-05] MEDS ORDERED: ceFAZolin 1 GM/D5W 1 GM in Premix Bag 1 BAG IVPB SCH (06:00)
[2020-04-05 06:17] LABS: #Lymphocytes 1.1 thou/uL (1.20-3.40); #Monocytes 0.2 thou/uL (0.11-0.59); #Neutrophils 3.2 thou/uL (1.40-6.50); %Basophils 0.2 % (0.0-1.0); %Eosinophils 0.4 % (0.0-10.0); %Lymphocytes 25.2 % (21.0-51.0); %Monocytes 3.8 % (0.0-10.0); %Neutrophils 70.4 % (42.0-75.0); Hemoglobin 10.3 g/dL (12.0-16.0); Mean Corpuscular HGB CONC 32.4 g/dL (32.0-36.0); Mean Corpuscular Hemoglobin 29.2 pg (27.0-31.0); Mean Corpuscular Volume 90.1 fL (78.0-98.0); Platelet Count 362 thou/uL (130-400); RBC Distribution Width 13.2 % (11.5-14.5); Red Blood Cell (RBC) Count 3.54 mill/uL (4.20-5.40); White Blood Cell (WBC) Count 4.5 thou/uL (4.8-10.8)
[2020-04-05 06:36] LABS: ALT (SGPT) 8 U/L (8-55); AST (SGOT) 10 U/L (5-34); Albumin 2.7 g/dL (3.5-5.0); Alkaline Phosphatase 137 U/L (40-110); Anion Gap 13 mmol/L (10-20); BUN (Urea Nitrogen) 4 mg/dL (7.0-18.7); Bilirubin, Total 0.4 mg/dL (0.2-1.2); Calc. Creatinine Clearance 158 mL/min (70-130); Calcium 8.1 mg/dL (7.8-10.44); Carbon Dioxide 22 mmol/L (22-29); Chloride 100 mmol/L (98-107); Estimated GFR-MDRD Greater than 90; Globulin 3.4 g/dL (2.4-3.5); Glucose 99 mg/dL (70-105); Potassium 3.5 mmol/L (3.5-5.1); Protein, Total 6.1 g/dL (6.0-8.3); Sodium 131 mmol/L (136-145)
--- NOTE | 2020-04-05 08:50 | HP ---
TIME OF ASSESSMENT: 0100. CHIEF COMPLAINT: Abdominal distention and discomfort. HISTORY OF PRESENT ILLNESS: Ms. Rich is a 49-year-old woman with a known history of metastatic ovarian cancer, who presents to the emergency department today with complaints of abdominal distention and discomfort that has progressively worsened in the last few days. She was recently admitted to the hospital from 03/23/2020 to 03/26/2020, due to recurrent ascites and partial bowel obstruction. The patient again is known to have metastatic ovarian cancer and known to have peritoneal carcinomatosis. She had an NG tube placed during her hospitalization and did not receive any surgical intervention. Following decompression of her abdomen, the NG tube was removed and she was able to tolerate some oral intake. The patient states since being home, she has not really had much to eat. She has attempted to maintain adequate fluid intake. She has received one chemotherapy treatment and is followed by Dr. Butler. The patient states her initial chemotherapy treatment was on March 25 and she received the first cycle of Doxil. For her pain, the patient has been taking hydrocodone at home. States the discomfort is somewhat tolerable, but she became alarmed due to the progressive worsening. Unable to rate the discomfort in terms of severity and states it is diffuse involving the entire abdomen. She has noted increased belching and has passed some flatus. She states she feels as if she has a lot of air trapped in her abdomen. Reports having her last bowel movement yesterday and states they are very small without any loose stools. The patient felt this was due to the fact that she has not been eating much. She denies any vomiting. REVIEW OF SYSTEMS: She denies any fevers, chills, or sweats. She does feel generally fatigued, but has not been in any acute distress. No fevers, chills, or night sweats. No headaches or dizziness. No urinary symptoms. No blood in her stools or melena. No chest pain or shortness of breath. No cough or hemoptysis. Of note, patient states that she has developed swelling of the left lower extremity, which is new since being discharged from the hospital. The patient states she noted it almost immediately after going home. ED COURSE: In the emergency department, the patient underwent CT imaging of the abdomen and pelvis, which demonstrated numerous loculated fluid collections that appeared to have enlarged compared to prior study. This is particularly seen in the mid left abdomen and left upper quadrant. She was noted to have numerous irregular small bowel loops, some appeared thick walled and some of which demonstrated dilation with stool. She had bilateral pleural effusions with pleural thickening. She received 1 L of normal saline while in the emergency department. She had laboratory studies done which showed a white count of 5.6, hemoglobin 11.3, hematocrit 35.1, platelets 404. Sodium was low at 129, potassium 3.7, BUN 5, creatinine 0.51, GFR greater than 90, glucose 106, alkaline phosphatase 152, albumin 3.1. Lipase less than 4. Urinalysis notable for turbid appearing urine with 30 of protein, 20 ketones, 25 leukocyte esterase, 7-10 white blood cells, greater than 50 squamous epithelial cells, 2+ bacteria and 3+ mucus. PAST MEDICAL HISTORY: Metastatic ovarian cancer. PAST SURGICAL HISTORY: Bilateral oophorectomy. SOCIAL HISTORY: The patient lives with her family. Denies any tobacco use, alcohol consumption, or illicit drug use. ALLERGIES: NO KNOWN DRUG ALLERGIES. CURRENT MEDICATIONS: Hydrocodone for pain. PHYSICAL EXAMINATION: GENERAL: The patient appears well developed, well nourished, is in no acute distress. VITAL SIGNS: Temperature 98.7, pulse 110, blood pressure 118/87, respirations 16, O2 saturation 94% on room air. HEENT: Normocephalic and atraumatic. Pupils are equal, round, and reactive to light. Sclerae without icterus. Oropharynx is clear. NECK: Supple. No lymphadenopathy. LUNGS: Clear to auscultation bilaterally without any wheezes, rales, or rhonchi. CARDIAC: Regular rate and rhythm. ABDOMEN: Notable for tense distention with hyperactive bowel sounds present. Some discomfort with palpation, but no guarding or rigidity. EXTREMITIES: Notable for swelling to the left lower extremity from the foot to below the knee. Mild calf discomfort with palpation. Peripheral pulses strong and equal bilaterally. SKIN: Warm and dry. INVESTIGATIONS: As mentioned above in HPI. ASSESSMENT AND PLAN: Ms. Rich is a Persian-speaking woman with known metastatic ovarian cancer to the peritoneum, who returns with recurring abdominal distention and discomfort. CT imaging studies done in the emergency department show enlarging fluid collections in the peritoneum when compared to prior study during her most recent admission. Also changes concerning for a partial bowel obstruction. The patient has been passing flatus today and denies any vomiting. She did have two small bowel movements yesterday evening. We will continue to monitor. May require NG tube placement. The patient has received one cycle of chemotherapy. We will place consultation to Oncology. We will plan to keep her n.p.o. Laboratory studies done in the emergency department notable for hyponatremia. She has received a liter of normal saline and per discussion with Dr. Gomez, we will continue with normal saline at 75 mL/h. We will check BMP q.6 hours and continue to monitor sodium. Consider nephrology consultation if deemed necessary per Day Team. The patient with new onset left lower extremity swelling since discharge. We will obtain venous Doppler to rule out DVT. The patient is tachycardiac, but denies any shortness of breath or chest pain. Sats are normal. If venous Doppler positive for DVT, or if the patient develops any chest pain, shortness of breath, persisting tachycardia, or changes in her sats, I would obtain a CT angiogram of her chest to assess for PE. The patient is a full code. Surrogate decision maker is her sister, Diann Rich. The patient's case was discussed with attending, who agrees with the plan of care as described above. Job ID: [id number]
[2020-04-05] MEDS ORDERED: Famotidine/PF 20 mg/2ml Vial SLOW IVP SCH (09:00)
--- NOTE | 2020-04-05 09:21 | ULT ---
EMERGENT AFTER HOURS LEFT LOWER EXTREMITY VENOUS DUPLEX ULTRASOUND INCLUDING COLOR AND SPECTRAL DOPPL ER IMAGIN04/05/20 2:49 a.m. HISTORY: Left lower extremity swelling and edema. TECHNIQUE: Exam performed from groin to ankle, including the visualized greater saphenous, common femoral, super ficial femoral, profunda femoral, popliteal, trifurcation and posterior tibial vein regions. FINDINGS: Phasic flow at all levels with normal compressibility and normal augmentation. No intraluminal thromb us. IMPRESSION: No evidence for deep venous thrombosis in the left lower extremity. POS: [facility]
[2020-04-05 11:50] VITALS: TEMP 98.6
[2020-04-05 16:23] VITALS: BP 138/81
--- NOTE | 2020-04-05 19:41 | CON ---
DATE OF CONSULTATION: 04/05/2020 HISTORY OF PRESENT ILLNESS: Ms. Layla Thakur is a 49-year-old female with a BRCA mutation who has relapsed carboplatin-resistant metastatic ovarian cancer. She received her first cycle of Doxil last week and had presented to the emergency room with complaints of increasing abdominal pain despite taking hydrocodone at home. She states she was passing gas and had some small bowel movements and she has had 2 bowel movements since being admitted. She currently is not taking laxative she states, but the pain in her upper abdomen and right upper quadrant were very bad and that is why she came to the emergency room. She states they got worse quickly and that was the reason for the admission. She is tolerating clear-liquid diet without nausea or vomiting. She denies fevers, chills, no cough. PAST MEDICAL HISTORY: 1. Relapsed carboplatin-resistant ovarian cancer. 2. BRCA mutation. 3. Cough. PAST SURGICAL HISTORY: Bilateral oophorectomy and hysterectomy in November of 2019. CURRENT MEDICATIONS: 1. Tylenol p.r.n. 2. Cefazolin 1 g q.8 hours. 3. Pepcid 20 mg IV q.12 hours. 4. Morphine 2 mg IV q.4 hours p.r.n. ALLERGIES: NO KNOWN DRUG ALLERGIES. SOCIAL HISTORY: She lives in town, is Ecuadorean-speaking only and is an illegal alien. She does have a 13-year-old daughter and a sister who are quite supportive. She denies tobacco or alcohol use. FAMILY HISTORY: Noncontributory. REVIEW OF SYSTEMS: Otherwise 10-point review of systems is negative. Please see the history of present illness. PHYSICAL EXAMINATION: VITAL SIGNS: Temperature 98.6, T-max 100.2; pulse 95; respirations 18; O2 saturation 96% on room air; blood pressure 146/74. GENERAL: She is pleasant, sitting up in a chair, in no acute distress, conversant. HEENT: Sclerae are anicteric. NECK: Supple without lymphadenopathy. CARDIOVASCULAR: Regular rhythm. LUNGS: Clear to auscultation. ABDOMEN: Distention with dullness in the flanks and diffuse tenderness, but without rebounding or guarding. She is exquisitely tender in the right upper quadrant and mid epigastric area. EXTREMITIES: No edema. LABORATORY DATA: Urinalysis shows a turbid urine with ketones as well as 2+ bacteria, although was not a clean catch with multiple epithelial cells. White blood cell count 4.5, hemoglobin 10.3, platelets 362. Chemistry; sodium 131, potassium 3.5, chloride 100, CO2 of 22, BUN 4, creatinine 0.4, glucose 99, calcium 8.1, AST 10, ALT 8, alkaline phosphatase 137, total protein 6.1, albumin 2.7. CT scan of the abdomen and pelvis done in the emergency room showed small bilateral pleural effusions as well as pleural enhancement and thickening left greater than right. There is a large fluid collection inferior to the right lobe of the liver measuring 21 cm x 24 cm, similar to the prior exam. The spleen, pancreas, adrenal, and kidneys demonstrate no acute findings. There are numerous fluid collections associated with multiple abnormal appearing thickened wall loops of bowel throughout the abdomen and pelvis centrally, primarily associated with markedly abnormal loops of small bowel. ASSESSMENT: Ms. Layla Thakur is a 49-year-old female with; 1. Relapsed carboplatin-resistant metastatic ovarian cancer. 2. BRCA mutation. 3. Possible urinary tract infection. 4. Abdominal pain secondary to disease. 5. Imaging showing partial small bowel obstruction, although clinically she does not appear to have a bowel obstruction. 6. Constipation, but currently she is having bowel movements. PLAN: 1. Ms. Layla Thakur is quite aware of her prognosis. We have discussed this at length in the office. We are hoping that Doxil will help her symptoms, but has not been given enough time to work. I would recommend increasing her pain medicine as well as increasing her laxative use. We will consult Palliative Care for help with assistance on symptom management. 2. She remains a full code at this time. 3. As an outpatient, we hopefully can have her see her surgeon in the [place] to make sure that there is no surgical intervention necessary. Currently, she is tolerating p.o. and having bowel movements, so I do not think surgery is necessary. This maybe difficult since she is undocumented alien in our country, but we can work on this as an outpatient. Her overall prognosis is quite poor and I am quite concerned about how she will do in the long run. This has been discussed with her in the office. Thank you for this consult. We will follow along peripherally with you. Job ID: [id number]
--- NOTE | 2020-04-05 22:00 | DIS ---
DATE OF ADMISSION: 04/05/2020 DATE OF DISCHARGE: 04/05/2020 DISCHARGE DIAGNOSES: As of the following; 1. Abdominal pain, distention. 2. Bilateral lower extremity swelling. HISTORY OF PRESENT ILLNESS: The patient is a 49-year-old female, who was just discharged on March 26 and was diagnosed with metastatic ovarian cancer with carcinomatosis. She also had malignant ascites. She also had partial small bowel obstruction and was seen by Surgery, who recommended conservative management and initially had an NG tube, which was then removed and she was able to tolerate oral food and was discharged home. The patient comes back in last night with complaints of abdominal distention and discomfort. The patient states that she had bowel movements here in the hospital. She initially was put on clear liquid. Her diet was advanced to regular diet, she tolerated that. She had a repeat CT scan here of the abdomen and pelvis, which indicated that she had numerous loculated fluid collections throughout the abdomen and pelvis, some of which have enlarged compared to prior study. She had significant irregular small bowel loops, which were thickened walled and somewhat demonstrated dilation of the internal stool. She also had some bilateral pleural effusion and pleural thickening that was noted. The patient has extensive peritoneal carcinomatosis and also ascites fluid in last admission was malignant. The patient did receive chemotherapy, which was Doxil. Her next one is due on the 22 of April. She also underwent a debulking surgery in [place]. I did speak with the patient's sister using a building guard deputy sheriff. She described that she had extensive disease. She was also seen by oncologist here. Surgery did evaluate the patient last time. There was no surgical intervention that was noted. Given her extensive disease, I do not think there will be any surgical interventions that can be helpful for this patient since she has extensive disease. The patient also had ultrasound of her left lower extremity, which was a little bit more larger appearing than her right, which was negative for DVT. This is most likely secondary to again her tumor burden and the compression of her lymphatics. The patient now will be discharged home. She is tolerating her food well. Really nothing much more for me to offer her. Her home medications will be hydrocodone and she has also been put on some stool softeners. PHYSICAL EXAMINATION: VITAL SIGNS: Her vital signs are temperature 98.6, pulse 95, respiratory rate 16, oxygen saturation 94% on room air, and blood pressure 138/81. GENERAL: She is awake, alert, and oriented x3. Does not appear in distress. CV: S1 and S2 present. No murmurs, rubs, or gallops. ABDOMEN: Mildly distended. Bowel sounds are present x2. Mild pain upon palpation all over. EXTREMITIES: Her left extremity is greater than her right, in regard to edema and pitting. The patient again will be discharged home. Her overall prognosis is very poor. Oncology to recommend the patient to be seen by Palliative, however, this could be done as an outpatient. Unable to give her home health given the fact that she is uninsured. Job ID: [id number]
== END 2020-04-05 17:52 | disposition home or self-care (01) ==
LOC: ERS 19:27 → ONC 04-05 00:34
PROVIDERS: ADMIT Internal Medicine; ATTEND Internal Medicine
DX: R14.0 Abdominal distension (gaseous) (principal); M79.89 Other specified soft tissue disorders; C56.9 Malignant neoplasm of unspecified ovary; R18.0 Malignant ascites; K59.00 Constipation, unspecified; J90 Pleural effusion, not elsewhere classified
CPT/HCPCS: 36415; 74177; 80053; 81003; 81015; 83690; 85025; 96360; 96372; 96374; 96375; G0378; J0690; J1650; J2270; Q9967; S0028

== ENCOUNTER 2020-04-22 09:55 | Day surgery (SDC) | payer OTHER ==
[~2020-04-22 09:55] MED LIST changes: +DEXTROSE 5% IVPB SCH; +DOXORUBICIN PEG LIPOSOMAL IVPB SCH; -Iopamidol 370 76% 100 ML VIAL ONE; +Palonosetron HCl 0.25 MG in Sodium Chloride 0.9% 50 ML IVPB SCH; +WATER IVPB SCH
[2020-04-22 10:31] VITALS: BP 114/64; TEMP 98.4
== END 2020-04-22 12:04 | disposition home or self-care (01) ==
LOC: ONC/OP 09:55
PROVIDERS: ATTEND Internal Medicine Hematology & Oncology
DX: Z51.11 Encounter for antineoplastic chemotherapy (principal); C56.2 Malignant neoplasm of left ovary
CPT/HCPCS: 96375; 96413; J1100; J2469; J7070; J9000

== ENCOUNTER 2020-05-20 09:40 | Day surgery (SDC) | payer OTHER ==
[2020-05-20 09:50] VITALS: BP 128/79; TEMP 98.2
== END 2020-05-20 12:02 | disposition home or self-care (01) ==
LOC: ONC/OP 09:40
PROVIDERS: ATTEND Internal Medicine Hematology & Oncology
DX: Z51.11 Encounter for antineoplastic chemotherapy (principal); C56.2 Malignant neoplasm of left ovary
CPT/HCPCS: 96375; 96413; J1100; J2469; J7070; J9000

== ENCOUNTER 2020-06-17 13:45 | Day surgery (SDC) | payer OTHER ==
[2020-06-17] MEDS ORDERED: Sodium Chloride 0.9% 20 ML ONE (13:52)
[2020-06-17 14:00] VITALS: BP 126/73; TEMP 100
== END 2020-06-17 16:08 | disposition home or self-care (01) ==
LOC: ONC/OP 13:45
PROVIDERS: ATTEND Internal Medicine Hematology & Oncology
DX: Z51.11 Encounter for antineoplastic chemotherapy (principal); C56.2 Malignant neoplasm of left ovary
CPT/HCPCS: 96375; 96413; J1100; J2469; J7070; J9000

== ENCOUNTER 2020-07-16 12:39 | Day surgery (SDC) | payer OTHER ==
[2020-07-16] MEDS ORDERED: Sodium Chloride 0.9% 20 ML ONE (12:42)
== END 2020-07-16 15:59 | disposition home or self-care (01) ==
LOC: ONC/OP 12:39
PROVIDERS: ATTEND Internal Medicine Hematology & Oncology
DX: Z51.11 Encounter for antineoplastic chemotherapy (principal); C56.2 Malignant neoplasm of left ovary
CPT/HCPCS: 96375; 96413; J1100; J2469; J7070; J9000

== ENCOUNTER 2020-08-09 17:54 | Inpatient (IN) | payer MEDICAID, OTHER ==
[~2020-08-09 17:54] MED LIST changes: -DEXTROSE 5% IVPB SCH; -DOXORUBICIN PEG LIPOSOMAL IVPB SCH; +Iopamidol-370 76% 500 ML 1 ML ONE; -Palonosetron HCl 0.25 MG in Sodium Chloride 0.9% 50 ML IVPB SCH; -WATER IVPB SCH
[2020-08-09 18:26] LABS: #Basophils 0.1 thou/uL (0.0-0.2); #Lymphocytes 1.3 thou/uL (1.20-3.40); #Monocytes 0.9 thou/uL (0.11-0.59); #Neutrophils 8.6 thou/uL (1.40-6.50); %Basophils 0.5 % (0.0-1.0); %Eosinophils 0.3 % (0.0-10.0); %Lymphocytes 11.9 % (21.0-51.0); %Monocytes 8.6 % (0.0-10.0); %Neutrophils 78.8 % (42.0-75.0); Hemoglobin 11.7 g/dL (12.0-16.0); Mean Corpuscular HGB CONC 32.7 g/dL (32.0-36.0); Mean Corpuscular Hemoglobin 29.2 pg (27.0-31.0); Mean Corpuscular Volume 89.3 fL (78.0-98.0); Mean Platelet Volume 7.2 fL (7.4-10.4); Platelet Count 360 thou/uL (130-400); RBC Distribution Width 18.1 % (11.5-14.5); White Blood Cell (WBC) Count 10.9 thou/uL (4.8-10.8)
--- NOTE | 2020-08-09 18:32 | RAD ---
EXAM: Single view of the chest HISTORY: Productive cough and shortness of breath COMPARISON: 07/02/2019 FINDINGS: Single view of the chest shows a normal sized cardiomediastinal silhouette. Bilateral cordell hilar infiltrates are seen. There are bilateral lower lobe airspace opacities. Adjacent pleural effusions may be present. No acute osseous abnormality. IMPRESSION: Bilateral perihilar and lower lobe infiltrates with adjacent pleural effusions
[2020-08-09 18:34] LABS: INR-International Normal Ratio 1.1; PTT 35.5 sec (22.9-36.1); Prothrombin Time 14.4 sec (12.0-14.7)
[2020-08-09 18:47] LABS: ALT (SGPT) 18 U/L (8-55); AST (SGOT) 28 U/L (5-34); Albumin 3.5 g/dL (3.5-5.0); Alkaline Phosphatase 246 U/L (40-110); Anion Gap 13 mmol/L (10-20); BUN (Urea Nitrogen) 8 mg/dL (7.0-18.7); Bilirubin, Total 0.4 mg/dL (0.2-1.2); Calc. Creatinine Clearance 0 mL/min (70-130); Carbon Dioxide 28 mmol/L (22-29); Chloride 100 mmol/L (98-107); Estimated GFR-MDRD Greater than 90; Globulin 4.7 g/dL (2.4-3.5); Glucose 163 mg/dL (70-105); Potassium 4.1 mmol/L (3.5-5.1); Protein, Total 8.2 g/dL (6.0-8.3); Sodium 137 mmol/L (136-145)
[2020-08-09 18:49] LABS: D-Dimer Test 13.18 *mcg/mL (0.27-0.43)
[2020-08-09] MEDS ORDERED: Azithromycin 500 MG VIAL ONE (19:12)
[2020-08-09] MEDS ORDERED: Acetaminophen 500 MG TAB ONE (19:12)
[2020-08-09] MEDS ORDERED: cefTRIAXone\\ROCEPHIN 1 GM VIAL ONE (19:12)
[2020-08-09] MEDS ORDERED: Acetaminophen 325 MG TAB PO PRN (19:14)
--- NOTE | 2020-08-09 20:03 | PDOC.BPN ---
- Brief Progress Note Encounter Date: 08/09/20 [id number] HP
[2020-08-09 20:42] LABS: SARS-CoV-2 NAA Rapid Test Not Detected (NotDetected)
--- NOTE | 2020-08-09 21:49 | CT ---
CT ANGIOGRAM OF THE CHEST: History: Bilateral oophorectomy for ovarian cancer. Elevated D-Dimer and shortness of breath. Cough. Comparison: 02-14-2020 Correlation: 04-04-2020 Technique: CT angiogram of the chest was performed in the axial plane. 3D reformatted images are subm itted for interpretation. FINDINGS: There is bilateral axillary lymphadenopathy. Sales Operations Coordinator right axillary lymph node measures 3.6 x 1.5 cm. There is extensive mediastinal lymphadenopathy. Left mediastinal lymph node measures 2.6 x 2.8 cm. Th ere is mild rightward deviation of the trachea. Heart is normal in size. Small amount of pericardial fluid. Moderate bilateral pleural effusions with adjacent lung parenchymal consolidation with atelectasis, p neumonia, or aspiration. Subdiaphragmatic structures demonstrate periportal lymphadenopathy. Evaluation is incomplete. There is increased soft tissue density in the left and right hilum with air bronchograms. Bilateral p erihilar pneumonia is suspected. There appears to be associated bilateral lymphadenopathy. Additional confluent opacity in the superior segment of both lower lobes are noted. There is thickening of the left and right major fissures as well as the minor fissure due to pleural fluid. Aorta has a normal caliber. No aneurysm of periaortic fat stranding. Adequate contrast opacification of the pulmonary arterial system to the level of the segmental arteri es. No filling defect to suggest thromboembolism. There are no lytic or blastic lesions in the osseous structures. IMPRESSION: 1. No evidence of pulmonary artery embolism to the level of the segmental arteries. 2. Bilateral perihilar and bilateral lower lobe consolidation with air bronchograms. Correlate f or multilobar pneumonia. 3. Extensive metastases with bilateral axillary and extensive mediastinal/hilar lymphadenopathy. 4. Complex bilateral pleural effusions which are presumed to be malignant. POS: [facility]
[2020-08-09] MEDS: cefTRIAXone\\ROCEPHIN 1 GM in Sodium Chloride 0.9% 100 ML IVPB SCH (22:52)
[2020-08-09] MEDS: Azithromycin 500 MG in Sodium Chloride 0.9% 250 ML 250 ML IVPB SCH (22:52)
[2020-08-09 23:06] VITALS: BMI 24.4
--- NOTE | 2020-08-09 23:40 | HP ---
CHIEF COMPLAINT: Shortness of breath and cough. HISTORY OF PRESENT ILLNESS: Ms. Rich is a 50-year-old female with past medical history of ovarian cancer, on chemotherapy, presented to the emergency room with shortness of breath, cough, and ? fever. The patient denies chest pain, nausea, vomiting, or abdominal pain. On workup in the emergency room, the patient has elevated ESR 124, elevated CRP at 15.1, elevated D-dimer at 13.1. Chest x-ray shows perihilar lower lobe infiltrates with adjacent pleural effusions? The patient had a temperature of 100. Septic workup done in the ED. Started on IV antibiotics. CTA of the chest is being ordered, to rule out PE. The results are still pending. The patient is being admitted to hospital for further management. PAST MEDICAL HISTORY: As mentioned above in history of present illness. PAST SURGICAL HISTORY: Hysterectomy and ? oophorectomy. FAMILY HISTORY: Reviewed and noncontributory. SOCIAL HISTORY: Denies smoking, alcohol drinking, or drug abuse. HOME MEDICATIONS: Please see home medication reconciliation form for updated medications. ALLERGIES: NO KNOWN ALLERGIES. REVIEW OF SYSTEMS: Review of 14 systems negative except what is mentioned in history of present illness. PHYSICAL EXAMINATION: GENERAL: The patient is awake, alert, in moderate distress. VITAL SIGNS: Blood pressure 144/84, pulse is 129, respiratory rate is 30, temperature is 100, and oxygen saturation is 95% on 2 L/minute nasal cannula. HEAD AND NECK: Normocephalic and atraumatic. Neck is supple. CHEST: Decreased air entry bilaterally with few basilar crackles. HEART: S1, S2. Regular, tachycardic. ABDOMEN: Distended. Bowel sounds present. NEUROLOGIC: Awake, alert, oriented x3. No focal deficits. PSYCH: Unable to assess. EXTREMITIES: No clubbing or cyanosis. LABORATORY DATA: As mentioned above in the history of present illness. IMAGING STUDIES: As mentioned above in the history of present illness. ASSESSMENT: 1. Pneumonia? ? ? 2. Elevated D-dimer, CTA of the chest is being done, to follow the results. 3. Ovarian cancer. 4. On chemotherapy. PLAN: 1. Admit. 2. Septic workup in the ED. 3. The patient was started on IV antibiotics. We will continue for now. 4. CTA of the chest is being done, to follow the results. PE need to be ruled out. Also, heart failure cannot be entirely ruled out based on the x-ray findings. We will follow the CT of the chest for better assessment. 5. Oxygen to keep saturation more than 92%. 6. Reconcile home medications. 7. DVT prophylaxis as appropriate. 8. Expected length of stay, 2 midnights or more. Job ID: [id number]
[2020-08-09] MEDS: Guaifenesin DM 100-10/5 ML UDCUP PO PRN (23:51)
[2020-08-10] MEDS: Guaifenesin DM 100-10/5 ML UDCUP PO PRN ×4 (03:44→21:22)
--- NOTE | 2020-08-10 07:31 | PDOC.HOSPP ---
- Subjective Encounter Date: 08/10/20 Encounter Time: 10:00 Subjective: Patient with improved shortness of breath, some cough with clear sputum. No fever overnight. - Objective Vital Signs & Weight: Vital Signs (12 hours) Temp Pulse Resp BP BP Pulse Ox 08/10/20 03:46 97.9 F 98 16 134/83 99 08/10/20 00:02 99 08/09/20 22:41 98.4 F 108 H 16 131/76 100 Weight Weight 125 lb 0.034 oz I&O: 08/09/20 08/10/20 08/11/20 06:59 06:59 06:59 Intake Total 400 Balance 400 Result Diagrams: 08/10/20 07:03 08/10/20 07:04 Hospitalist ROS - Review of Systems Constitutional: denies: fever, chills Respiratory: reports: cough, shortness of breath Cardiovascular: denies: chest pain, palpitations Gastrointestinal: denies: nausea, vomiting, abdominal pain - Medication Medications: Active Medications Generic Name Dose Route Start Last Admin Trade Name Freq PRN Reason Stop Dose Admin Guaifenesin/Dextromethorphan 15 ml 08/09/20 23:35 08/10/20 03:44 Guaifenesin Dm 100-10/5 Ml Udcup PO 15 ml Q4H PRN Administration Cough Ceftriaxone Sodium 1 gm/ 100 mls @ 200 mls/hr 08/09/20 20:00 08/09/20 22:52 Sodium Chloride IVPB Not Given Q24HR UBALDO Azithromycin 500 mg/ Sodium 250 mls @ 250 mls/hr 08/09/20 21:00 08/09/20 22:52 Chloride IVPB Not Given Q24HR UBALDO - Exam General Appearance: NAD, awake alert ENT: moist mucosa Heart: RRR, no murmur, no gallops, no rubs Respiratory: no wheezes, normal chest expansion, no tachypnea Respiratory - other findings: mild crackles in bases Gastrointestinal: soft, non-tender, non-distended, normal bowel sounds Psychiatric: normal affect, normal behavior, A&O x 3 Hosp A/P (1) Bilateral pneumonia Code(s): J18.9 - PNEUMONIA, UNSPECIFIED ORGANISM Status: Acute (2) Malignant pleural effusion Code(s): J91.0 - MALIGNANT PLEURAL EFFUSION Status: Acute Plan: Bilateral (3) Ovarian cancer Status: Chronic (4) Metastasis Code(s): C79.9 - SECONDARY MALIGNANT NEOPLASM OF UNSPECIFIED SITE Status: Chronic - Plan Patient on Rocephin and Azithromycin since 08/09/2020 Oncology consult DVT Proph: Lovenox GI Proph: Pepcid BID
[2020-08-10 07:34] LABS: #Eosinphils 0.1 thou/uL (0.0-0.7); #Lymphocytes 1.1 thou/uL (1.20-3.40); #Monocytes 1.3 thou/uL (0.11-0.59); %Basophils 0.4 % (0.0-1.0); %Eosinophils 0.5 % (0.0-10.0); %Lymphocytes 9.9 % (21.0-51.0); %Monocytes 10.9 % (0.0-10.0); %Neutrophils 78.3 % (42.0-75.0); Hemoglobin 10.6 g/dL (12.0-16.0); Mean Corpuscular HGB CONC 33.2 g/dL (32.0-36.0); Mean Corpuscular Hemoglobin 29.8 pg (27.0-31.0); Mean Corpuscular Volume 89.7 fL (78.0-98.0); Mean Platelet Volume 7.9 fL (7.4-10.4); Platelet Count 322 thou/uL (130-400); RBC Distribution Width 18.2 % (11.5-14.5); Red Blood Cell (RBC) Count 3.56 mill/uL (4.20-5.40); White Blood Cell (WBC) Count 11.5 thou/uL (4.8-10.8)
[2020-08-10 07:53] LABS: Anion Gap 12 mmol/L (10-20); BUN (Urea Nitrogen) 6 mg/dL (7.0-18.7); Calc. Creatinine Clearance 123 mL/min (70-130); Calcium 8.8 mg/dL (7.8-10.44); Carbon Dioxide 25 mmol/L (22-29); Chloride 104 mmol/L (98-107); Estimated GFR-MDRD Greater than 90; Glucose 107 mg/dL (70-105); Potassium 4.1 mmol/L (3.5-5.1); Sodium 137 mmol/L (136-145)
[2020-08-10] MEDS: Enoxaparin Sodium 40 MG/0.4 ML SYRINGE SC SCH (08:39)
[2020-08-10] MEDS: Famotidine 20 MG TAB PO SCH ×2 (08:39→20:07)
[2020-08-10] MEDS: cefTRIAXone\\ROCEPHIN 1 GM in Sodium Chloride 0.9% 100 ML IVPB SCH (20:06)
[2020-08-10] MEDS: Azithromycin 500 MG in Sodium Chloride 0.9% 250 ML 250 ML IVPB SCH (21:05)
[2020-08-11] MEDS: Guaifenesin DM 100-10/5 ML UDCUP PO PRN ×5 (04:46→21:15)
--- NOTE | 2020-08-11 06:04 | CON ---
DATE OF CONSULTATION: REASON FOR CONSULT: Ovarian cancer. HISTORY OF PRESENT ILLNESS: Ms. Thakur is an unfortunate 50-year-old female, who was diagnosed with high-grade serous carcinoma of the ovary. She has a BRCA1 mutation. She underwent treatment with carboplatin and Taxol, then had surgery. Unfortunately, she relapsed within three months of surgery. She is currently on Doxil and has completed five cycles. She presented to the emergency room with increasing shortness of breath and cough. Workup in the ER showed she has an elevated sedimentation rate of 124 and elevated CRP of 15.1. She underwent a chest x-ray, which showed perihilar lower lobe infiltrates with pleural effusions. She then had a CT angio of her chest, this showed bilateral axillary lymphadenopathy with a right node measuring 3.6 x 1.5. She had extensive mediastinal lymphadenopathy. The left mediastinal lymph node measured 2.6 x 2.8 cm. She had moderate bilateral pleural effusions with adjacent parenchymal consolidation. There was no evidence of pulmonary emboli. She was admitted and started on empiric antibiotics for pneumonia. She is on oxygen. She was seen at bedside, sitting in the chair. She was seen with our home health care case manager from the cancer center [facility], who provided Irish interpretation. PAST MEDICAL HISTORY: 1. 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 2. Malignant ascites. 3. BRCA1 mutation. PAST SURGICAL HISTORY: Hysterectomy and oophorectomy. ALLERGIES: NO KNOWN DRUG ALLERGIES. HOME MEDICATIONS: 1. Gabapentin. 2. Hydrocodone. 3. MS Contin. 4. Tina. 5. Zofran. FAMILY HISTORY: Her sister has a BRCA mutation as well. SOCIAL HISTORY: , lives with her spouse, 13-year-old child. No alcohol, tobacco, or illicit drug use. REVIEW OF SYSTEMS: A 12-point review of systems is negative except for noted in HPI. PHYSICAL EXAMINATION: VITAL SIGNS: Temperature is 98.3, pulse is 104, respiratory rate is 18, BP is 139/84, and she is 97% on 2 L. GENERAL: She is a chronically ill-appearing female, in no acute distress. HEENT: Normocephalic and atraumatic. Pupils are equal and reactive to light. NECK: Supple. CV: Regular rate and rhythm. She does have tachycardia. LUNGS: She has coarse crackles throughout. ABDOMEN: Soft. Bowel sounds are positive. EXTREMITIES: No clubbing or cyanosis. SKIN: No rash. HEMATOLOGIC: No petechiae or purpura. LYMPH: She has palpable left axillary lymphadenopathy. NEUROLOGIC: Nonfocal. PERTINENT LABORATORY DATA AND X-RAYS: Current WBCs are 11.5, hemoglobin is 10.6, hematocrit is 31.9, platelet count is 322,000, 78% neutrophils, 10% lymphs, and 11% monos. PT is 14.4, INR is 1.1, and PTT is 35.5. D-dimer is 13.18. Sodium is 137, potassium is 4.1, chloride is 104, CO2 is 25, BUN is 6, creatinine is 0.50, lactic acid is 1.3, calcium is 8.8, bilirubin is 0.4, AST is 28, ALT is 18, and alkaline phosphatase is 246. BNP is negative. Serum total protein is 8.2, albumin is 3.5, and globulin is 4.7. COVID negative. Radiology per HPI. ASSESSMENT: 1. Metastatic ovarian cancer with likely progression. 2. Worsening bilateral pleural effusions, likely malignant. 3. Pneumonia. DISCUSSION: The patient is on antibiotics and O2. Would consider low-dose steroids for her wheezing and crackles. The patient was due for restaging with a CT of the chest, abdomen, and pelvis. Would like to get the abdomen and pelvis prior to her departure. Will wait until her respiratory status improves. She may be a candidate for PARP inhibitor. She is aware that her prognosis is poor. We did discuss advance directives and she would like to be a do not resuscitate. I will have Palliative Care see her to discuss durable power of nurse unit manager. She has a minor child. Case has been discussed with Dr. Butler. Thank you for the consult. Job ID: [id number] [facility]
[2020-08-11] MEDS: Enoxaparin Sodium 40 MG/0.4 ML SYRINGE SC SCH (08:55)
[2020-08-11] MEDS: Famotidine 20 MG TAB PO SCH ×2 (08:55→19:58)
--- NOTE | 2020-08-11 10:46 | PDOC.FMACP ---
Advance Care Planning - Problem (1) Malignant pleural effusion Status: Chronic Code(s): J91.0 - MALIGNANT PLEURAL EFFUSION (2) Ascites, malignant Status: Acute Code(s): R18.0 - MALIGNANT ASCITES (3) Ovarian cancer Status: Chronic (4) Palliative care encounter Status: Acute Code(s): Z51.5 - ENCOUNTER FOR PALLIATIVE CARE (5) Metastasis Status: Chronic Code(s): C79.9 - SECONDARY MALIGNANT NEOPLASM OF UNSPECIFIED SITE - Note Participants: patient, palliative care Summary: Palliative Care revisited Advanced Care Planning. The diagnosis, prognosis and goals of care were discussed. Appropriate forms and documentation to accomplish the goals of care were discussed. Confirmed and completed document for DNAR, Zandra desires to make her sister as her MPOA. All questions were answered. Used data analytics architect Lauren [id number] for communication with patient. Ms Layla Thakur expressed the emotional difficulty in making decisions in relation to DNAR/Directive to Physician/MPOA. Reinforced that care would continue, this allowed her wishes to be known. Emotional Support and Therapeutic listening. Will ensure Spiritual Care consult place Time Spent (mins): 40
--- NOTE | 2020-08-11 12:50 | PDOC.HOSPP ---
- Subjective Encounter Date: 08/11/20 Encounter Time: 12:00 Subjective: sitting in chair with her sister by her side no sob, is on nasal canula O2 no abd pain or nausea now is eating better - Objective Vital Signs & Weight: Vital Signs (12 hours) Temp Pulse Resp BP Pulse Ox 08/11/20 08:00 99 08/11/20 07:00 97.8 F 98 18 134/88 99 Weight Weight 125 lb 0.034 oz I&O: 08/10/20 08/11/20 08/12/20 06:59 06:59 06:59 Intake Total 400 600 Balance 400 600 Result Diagrams: 08/10/20 07:03 08/10/20 07:04 Hospitalist ROS - Medication Medications: Active Medications Generic Name Dose Route Start Last Admin Trade Name Freq PRN Reason Stop Dose Admin Enoxaparin Sodium 40 mg 08/10/20 09:00 08/11/20 08:55 Enoxaparin Sodium 40 Mg/0.4 Ml Syringe SC 40 mg 0900 UBALDO Administration Famotidine 20 mg 08/10/20 09:00 08/11/20 08:55 Famotidine 20 Mg Tab PO 20 mg BID UBALDO Administration Guaifenesin/Dextromethorphan 15 ml 08/09/20 23:35 08/11/20 08:53 Guaifenesin Dm 100-10/5 Ml Udcup PO 15 ml Q4H PRN Administration Cough Ceftriaxone Sodium 1 gm/ 100 mls @ 200 mls/hr 08/09/20 20:00 08/10/20 20:06 Sodium Chloride IVPB 100 mls Q24HR UBALDO Administration Azithromycin 500 mg/ Sodium 250 mls @ 250 mls/hr 08/09/20 21:00 08/10/20 21:05 Chloride IVPB 250 mls Q24HR UBALDO Administration - Exam General Appearance: awake alert Eye: PERRL, anicteric sclera ENT: no oropharyngeal lesions, moist mucosa Neck: supple, no JVD Heart: RRR, no murmur Respiratory: no wheezes, no rales, rhonchi Gastrointestinal: soft, non-tender, normal bowel sounds, no guarding, no rigidity, distended Extremities: no cyanosis, no edema Neurological: cranial nerve grossly intact, no focal deficits Psychiatric: normal affect, A&O x 3 Hosp A/P (1) Bilateral pneumonia Code(s): J18.9 - PNEUMONIA, UNSPECIFIED ORGANISM Status: Acute Qualifiers: Pneumonia type: due to unspecified organism (2) Malignant pleural effusion Code(s): J91.0 - MALIGNANT PLEURAL EFFUSION Status: Chronic (3) Ovarian cancer Status: Chronic (4) Peritoneal carcinomatosis Code(s): C78.6 - SECONDARY MALIGNANT NEOPLASM OF RETROPERITON AND PERITONEUM; C80.1 - MALIGNANT (PRIMARY) NEOPLASM, UNSPECIFIED Status: Chronic (5) Chronic anemia Code(s): D64.9 - ANEMIA, UNSPECIFIED Status: Chronic - Plan has multilobar pna, on ceftriaxone and zithromax, nebs, nasal canula O2 covid 19 pcr is -ve CT chest shows b/l axillary, mediastinal and hilar lymphadenopathy, likely mets has h/o BRCA mutation with metastatic ovarian ca has poor prognosis per onc, is DNAR hemostable to mobilze as tolerated encourage po intake
--- NOTE | 2020-08-11 15:32 | PDOC.MOPN ---
Interval History: Breathing and oxygen sats improved. Off O2 - Vital Signs Vital Signs: Vital Signs (12 hours) Temp Pulse Resp BP Pulse Ox 08/11/20 15:03 110 H 22 H 95 08/11/20 13:29 94 L 08/11/20 08:00 99 08/11/20 07:00 97.8 F 98 18 134/88 99 Weight Weight 125 lb 0.034 oz - Physical Exam General: Alert, Oriented x3, No acute distress HEENT: Atraumatic Lungs: Other (crackles, wheeze) Cardiovascular: Regular rate Abdomen: Normal bowel sounds Neurological: Normal speech Psych/Mental Status: Mental status NL - Labs Result Diagrams: 08/10/20 07:03 08/10/20 07:04 Status: lab reviewed by me A/P - Problem (1) Bilateral pneumonia Current Visit: Yes Code(s): J18.9 - PNEUMONIA, UNSPECIFIED ORGANISM Status: Acute Qualifiers: Pneumonia type: due to unspecified organism (2) Ovarian cancer Current Visit: No Status: Chronic - Plan Plan: 1. Continue abx for pneumonia 2. CT scan abdomen/pelvis in am 3. Ok to discharge home when stable 4. follow-up in clinic to discuss treatment options.
[2020-08-11] MEDS: cefTRIAXone\\ROCEPHIN 1 GM in Sodium Chloride 0.9% 100 ML IVPB SCH (19:54)
[2020-08-11] MEDS: Azithromycin 500 MG in Sodium Chloride 0.9% 250 ML 250 ML IVPB SCH (21:14)
[2020-08-12] MEDS: Guaifenesin DM 100-10/5 ML UDCUP PO PRN (03:14)
[2020-08-12] MEDS ORDERED: Iopamidol 370 76% 100 ML VIAL ONE (08:45)
[2020-08-12 09:06] VITALS: BP 136/89; TEMP 98.4
[2020-08-12] MEDS: Enoxaparin Sodium 40 MG/0.4 ML SYRINGE SC SCH (09:19)
[2020-08-12] MEDS: Famotidine 20 MG TAB PO SCH (09:19)
--- NOTE | 2020-08-12 09:24 | CT ---
CT OF THE ABDOMEN AND PELVIS WITH IV CONTRAST INDICATION: 50-year-old female with history of ovarian cancer COMPARISON: Prior CT of the abdomen and pelvis with contrast dated April 04, 2020 and a CTA of the [address] dated August 09, 2020 FINDINGS: ABDOMEN: Lung bases: There is a enhancing pleural-based nodular lesions involving the lung bases with loculate d pleural effusions consistent with pleural-based metastases and complex effusions. There is bibasilar atelectasis. Liver: There are new hypodense lesions scattered throughout the liver consistent with hepatic metasta tic disease. Most conspicuous lesions are seen within the medial left hepatic lobe measuring 9 mm and in the caudate lobe measuring 9 mm. Gallbladder: There is stable cholelithiasis Pancreas: Normal. Adrenal glands: Normal. Spleen: Normal. Kidneys and ureters: Normal. No hydronephrosis. Vasculature: Normal. Lymph nodes:There is worsening retroperitoneal, mesenteric and upper abdominal lymphadenopathy. There is a new conglomeration of mesenteric lymph nodes seen within the central mesentery on image 33 of series 2 measuring 4.2 cm. There is worsening retrocrural lymphadenopathy measuring 1.3 and 1 cm. The re is an enlarging portacaval lymphadenopathy measuring up to 2.2 cm. There is worsening nodularity seen within the left paracolonic gutter measuring up to 2.3 cm on image 45 of series 2 consistent wit h carcinomatosis. Free fluid in abdomen:There is mild ascites PELVIS: Small and large bowel: There is persistent stricturing of a loop of small bowel, likely related to ad hesions, in the lower right mid abdomen, on image 57 series 2. This is inducing a mild partial small bowel obstruction. Appendix:Not definitely seen Bladder: Partially decompressed with marked wall thickening and perivesicular fat stranding Rectal and perirectal soft tissues:Normal. Reproductive structures: Surgically absent Free fluid in pelvis: Mild free fluid Lymphadenopathy pelvis: There are enlarged iliac chain and inguinal lymph nodes. Largest right inguin al lymph node measures 1.6 cm. Osseous structures: No acute osseous abnormality. No destructive osteolytic or osteoblastic lesion i s identified. There is scattered degenerative and osteoarthritic changes. Soft tissues:Mild anasarca IMPRESSION: 1. Worsening metastatic disease in the chest, abdomen or pelvis. There is pleural-based metastatic le sions with complex pleural effusions seen bilaterally. There is worsening hepatic metastatic disease. There is worsening malignant lymphadenopathy and peritoneal carcinomatosis. 2. Persistent stricturing of a loop of small bowel in the right lower quadrant of the abdomen inducin g mild partial small bowel obstruction. 3. Wall thickening and perivesicular fat stranding involving the bladder suspicious for superimposed cystitis.
--- NOTE | 2020-08-12 14:31 | DIS ---
DATE OF ADMISSION: 08/09/2020 DATE OF DISCHARGE: 08/12/2020 DISCHARGE DISPOSITION: To home. PRIMARY DISCHARGE DIAGNOSES: Bilateral pneumonia, ovarian cancer with multiple metastases and progression of disease, likely malignant pleural effusion, chronic anemia, history of BRCA mutation with metastatic ovarian cancer. PROCEDURES DONE DURING HOSPITALIZATION: CT angio chest done, showed no evidence of PE. There was bilateral perihilar and bilateral lower lobe consolidation with air bronchograms with multilobar pneumonia, extensive metastasis with bilateral axillary and extensive mediastinal/hilar lymphadenopathy, complex bilateral pleural effusions, which are presumed to be malignant. CT of the abdomen and pelvis with contrast showed worsening metastatic disease in the chest, abdomen, and pelvis. There are pleural based metastatic lesions with complex pleural effusion seen bilaterally. There is worsening hepatic metastatic disease, worsening malignant lymphadenopathy and peritoneal carcinomatosis, persistent stricturing of a loop of small bowel in the right lower quadrant of the abdomen inducing mild partial small-bowel obstruction. Wall thickening and perivascular fat stranding involving the bladder, suspicious for superimposed cystitis. LABORATORY DATA: Blood cultures x2, no growth. Hemoglobin and hematocrit are 10 and 31, platelet count 322, white count of 11.5, MCV 89. Sedimentation rate was 124. D-dimer 13. BUN 6, creatinine 0.5, albumin 3.5. CRP 15. BNP less than 10. COVID-19 PCR was not detected on 08/09/2020. DISCHARGE MEDICATIONS: 1. DuoNebs q.6 hourly. 2. Omnicef 300 mg p.o. twice daily for another 6 days. ALLERGIES: NO KNOWN DRUG ALLERGIES. DISCHARGE PLAN: The patient to follow up with Dr. Butler, her primary oncologist on 08/13 that is tomorrow at 8:45 a.m. She needs to follow up at [facility], her primary care physician in 1 week. BRIEF COURSE DURING HOSPITALIZATION: The patient initially got admitted on the with complaints of shortness of breath and cough. A CT angio chest done showed bilateral lower lobe consolidation with multifocal pneumonia. She has had rapid COVID test PCR done, which was negative. The patient was placed on broad- spectrum antibiotics. She was initially on oxygen with acute hypoxic respiratory failure, which has resolved at the time of discharge. The patient has history of BRCA mutation with metastatic ovarian cancer with progression. She was opted for do not attempt to resuscitate during her stay here. The patient will follow up with her oncologist tomorrow. Prior to discharge, she is ambulating and is off nasal cannula and tolerating oral solid diet. Medication assistance was requested from Case Management as the patient does not have funding. Please note, I have seen and examined the patient on the day of discharge. Job ID: [id number] MTDD
--- NOTE | 2020-08-15 15:28 | EKG ---
Test Reason : SOB\SEPSIS ALERT Blood Pressure : / mmHG Vent. Rate : 127 BPM Atrial Rate : 127 BPM P-R Int : 134 ms QRS Dur : 072 ms QT Int : 298 ms P-R-T Axes : 053 -07 036 degrees QTc Int : 433 ms Sinus tachycardia Anterior infarct , age undetermined Abnormal ECG Confirmed by EVAN TO, ALEXANDRA Fleming ([id number]), brands editor MIA ADAN ([id number]) on 08/15/2020 3:28:09 PM Referred By: Confirmed By:ALEXANDRA GORDON MD
--- NOTE | 2020-08-15 15:42 | PQF ---
CLINICAL DOCUMENTATION CLARIFICATION FORM: Dear : LUCITA MAY MD Date / Time: 08/15/2020 Please exercise your independent, professional judgment in responding to the clarification form. Clinical indicators are provided on the bottom of this form for your review Please check appropriate box(es): [ ] Sepsis due to: [ ] Severe sepsis with associated acute organ dysfunction: [ ] Acute Respiratory Failure [ ] Acute Kidney injury w/o ATN [ ] Acute Kidney Injury w ATN [ ] Encephalopathy (metabolic) (septic) [ ] Disseminated Intravascular Coagulopathy (DIC) [ ] Hepatic Failure [ ] Additional/Other: please specify: [ ] Septic Shock [ x ] Localized infection without sepsis [ ] SIRS due to non-infectious process (please specify etiology) [ ] with organ dysfunction [ ] without organ dysfunction [ ] Other diagnosis (Please specify if any) [ ] Unable to determine In addition, please specify: Present on Admission (POA): [ x ] Yes [ ] No [ ] Unable to determine Physician Signature: Date/Time: For continuity of documentation, please document condition throughout progress notes and discharge summary. Thank You. To be completed by CDI/Coding staff for physician review: Present Clinical Indicators - Signs / Symptoms / Labs Results and Location in Medical Record [ ] Altered mental status, increased confusion, obtunded [x] Fever or hypothermia (<96.8 F/36 C or > 100.4 F/38C) ED provider report on 08/09 [x] Respiratory rate >20/min, hypoxemia, and or hypercapnia RR 22 laboratory on 08/11 [x] Heart Rate/Tachycardia (>90 bpm), SBP<100mmHg ED provider report on 08/09 [x] Sepsis, pneumonia ED provider report on 08/09 [x] Although sepsis and SIRS considered, no evidence of overt sepsis at this time ED provider report on 08/09 [ ] Acute organ dysfunction/failure [ ] Metabolic acidosis Lactic Acid >2mmol/L OR 36mg/dL, [ ] Oliguria , increase BUN/Cr, decreased GFR, elevated liver enzymes [ ] Coag abnormalities, thrombocytopenia plts <100k [ ] Shock-hypotension resistant to IV fluid boluses [x] WBC count (>12,000/mm^4 or <4000/mm^3 or 70% neuts, 10% bands) WBC-11.5 Laboratory on 08/10 [ ] Hyperglycemia in absence of diabetes mellitus [ ] Positive blood cultures Present Risk Factors Results and Location in Medical Record [ ] Infection/Bacteremia [x] Pneumonia, UTI, infected wound, gangrenous gall bladder Diabetes or Cancer Pneumonia - ED provider report on 08/09 [ ] Surgery / surgical instrumentation / trauma Ruptured/perforated bowel, ruptured appendix [ ] Immunosuppression [ ] Advancing Age Present Treatments Results and Location in Medical Record [x] Septic workup in the ED H&P on08/09 [ ] Daily CBC, blood/sputum/wound cx [ ] ID Consult [x] Rocephin 1gm IV Medication on 08/09 to 08/12 [ ] IV fuids [ ] Vasopressors, meds [ ] Consultants; ID, GI, Pulmonary, Hematology CDS/Senior Engineering Associate Signature: DINOI Phone #: Date/Time: 08/15/2020 This is a permanent part of the Medical Record [facility]
== END 2020-08-12 13:08 | disposition home or self-care (01) | DRG 193 ==
LOC: ERS 17:54 → ONC 19:45
PROVIDERS: ADMIT Internal Medicine; ATTEND Internal Medicine
DX: J18.9 Pneumonia, unspecified organism (principal); J96.01 Acute respiratory failure with hypoxia; C56.9 Malignant neoplasm of unspecified ovary; J91.0 Malignant pleural effusion; C78.6 Secondary malignant neoplasm of retroperitoneum and peritoneum; Z51.5 Encounter for palliative care; Z90.722 Acquired absence of ovaries, bilateral; Z92.21 Personal history of antineoplastic chemotherapy; Z90.710 Acquired absence of both cervix and uterus; D64.9 Anemia, unspecified; Z20.828 Contact with and (suspected) exposure to other viral communicable diseases
CPT/HCPCS: 36415; 71045; 71275; 74177; 80048; 80053; 83605; 83880; 85025; 85379; 85610; 85652; 85730; 86140; 87040; 93005; 94640; 96365; 96366; J0456; J0696; J1650; J3490; J7050; J7620; Q9967; U0002